=== PATIENT | male | born 1985 | race Two or more races ===

== ENCOUNTER 2019-03-26 11:53 | Emergency (ER) | payer SELFPAY ==
[~2019-03-26] VITALS: Ht 172.7 cm; Wt 63.5 kg
[2019-03-26] MEDS ORDERED: SODIUM CHLORIDE 0.9% 1,000 ML IVB ONE (12:22)
[2019-03-26] MEDS ORDERED: MORPHINE SULF INJ 2 MG/ML SYRINGE 1ML IV ONE (12:30)
[2019-03-26] MEDS ORDERED: PROMETHAZINE HCL 25 MG/ML 1ML IV ONE (12:30)
[2019-03-26 14:52] VITALS: BP 115/69
== END 2019-03-26 15:09 | disposition short-term general hospital (02) ==
LOC: ER 12:03
DX: S42.492A Other displaced fracture of lower end of left humerus, initial encounter for closed fracture (principal); R07.89 Other chest pain; M25.522 Pain in left elbow; W18.39XA Other fall on same level, initial encounter; Y93.89 Activity, other specified; Y92.89 Other specified places as the place of occurrence of the external cause; Y99.8 Other external cause status
CPT/HCPCS: 29105; 71045; 73030; 73060; 73080; 73090; 96374; 96375; 99291; J2270; J2550; J7030